=== PATIENT | female | born 1965 | race Caucasian/White ===

== ENCOUNTER 2020-06-22 16:07 | Inpatient (IN) | payer OTHER ==
[~2020-06-22] VITALS: Ht 170.2 cm; Wt 230.4 kg
[~2020-06-22 16:07] MED LIST: CEPH250C PO; FERR325T14 PO; FURO40TA4 PO; LEVO112T49 PO; LOSA-73 PO; Smz/Tmp 800/160MG PO
[2020-06-22] MEDS ORDERED: VANCOMYCIN PER PHARMACY MC ONE (16:45)
[2020-06-22] MEDS ORDERED: MORPHINE SULFATE 4 MG/ML VIAL. IV/SQ PRN (16:45)
[2020-06-22 16:50] LABS: BASO % 0 % (0-3); EOS # 0.2 x10^3/uL (0.0-0.7); EOS % 3 % (0-3); HEMATOCRIT 43.8 % (36.0-47.0); HEMOGLOBIN 14.3 g/dL (12.0-15.5); LYMPH # 1.3 x10^3/uL (1.0-4.8); LYMPH % 17 % (24-48); MEAN CORPUSCULAR HEMOGLOBIN 28 pg (25-35); MEAN CORPUSCULAR HGB CONC 33 g/dL (31-37); MEAN CORPUSCULAR VOLUME 87 fL (79-100); MONO # 0.4 x10^3/uL (0.0-1.1); MONO % 6 % (0-9); NEUT # 5.4 x10^3/uL (1.8-7.7); NEUT % 74 % (31-73); PLATELET COUNT 266 x10^3/uL (140-400); RED BLOOD COUNT 5.06 x10^6/uL (3.50-5.40); RED CELL DISTRIBUTION WIDTH 15.7 % (11.5-14.5); WHITE BLOOD COUNT 7.3 x10^3/uL (4.0-11.0)
[2020-06-22] MEDS ORDERED: VANCOMYCIN 2 GM in IV NORMAL SALINE 500ML BAG 500 ML IV ONE (17:00)
[2020-06-22 17:04] LABS: CALCIUM 8.7 mg/dL (8.5-10.1); CREATININE 0.9 mg/dL (0.6-1.0); POTASSIUM 3.5 mmol/L (3.5-5.1)
[2020-06-22 17:08] LABS: ALBUMIN 3.2 g/dL (3.4-5.0); ALBUMIN/GLOBULIN RATIO 0.7 (1.0-1.7); TOTAL BILIRUBIN 0.4 mg/dL (0.2-1.0); TOTAL PROTEIN 7.9 g/dL (6.4-8.2)
[2020-06-22] MEDS ORDERED: PIPERACILLIN/TAZOBACTAM 4.5 GM in IV NORMAL SALINE 100ML 100 ML IV ONE (17:15)
--- NOTE | 2020-06-22 17:36 | PDOC1 ---
History and Physical Date of Admission Date of Admission DATE: 06/22/20 TIME: 17:35 Identification/Chief Complaint Chief Complaint SEEN IN ER WITH BILATERAL LOWER LEG CELLULITIS, LYMPHEDEMA , is followed by home visits by Dr STANLEY 54 year old female with a history of hypertension, kidney disease, morbidly obese, who presents the ED today complaining of bilateral lower extremity cellulitis that began a week ago and has gotten worse over the last couple days. Patient states she has history of circulation issues/ LYMPHEDEMA to bilateral lower extremities that occasionally causes her cellulitis. Patient denies any fever. Denies any shortness of breath. Past Medical History Cardiovascular: No pertinent hx, Hyperlipidemia Pulmonary: No pertinent hx GI: No pertinent hx Heme/Onc: No pertinent hx Hepatobiliary: No pertinent hx Psych: No pertinent hx Musculoskeletal: Osteoarthritis Rheumatologic: No pertinent hx Infectious disease: No pertinent hx Renal/: No pertinent hx Endocrine: No pertinent hx Past Surgical History Past Surgical History: No pertinent history Family History Family History Past Medical History Cardiovascular: No pertinent hx Pulmonary: No pertinent hx GI: No pertinent hx Heme/Onc: No pertinent hx Hepatobiliary: No pertinent hx Psych: No pertinent hx Rheumatologic: No pertinent hx Infectious disease: No pertinent hx ENT: No pertinent hx Renal/: No pertinent hx Endocrine: No pertinent hx Dermatology: No pertinent hx Past Surgical History Past Surgical History: No pertinent history Family History Family History: High Cholestrol, Hypertension Social History Smoke: No ALCOHOL: none Drugs: None Family History: High Cholestrol, Hypertension Social History Smoke: No ALCOHOL: none Drugs: None Current Medications Current Medications Current Medications Sodium Chloride 1,000 ml @ 1,860 mls/hr Q33M IV ; Start 06/22/20 at 16:38; Stop 06/22/20 at 17:38 Piperacillin Sod/ Tazobactam Sod 4.5 gm/Sodium Chloride 100 ml @ 200 mls/hr 1X ONCE IV ; Start 06/22/20 at 17:15; Stop 06/22/20 at 17:44 Vancomycin HCl (Vanco Per Pharmacy) 1 each 1X ONCE MC ; Start 06/22/20 at 16:45; Stop 06/22/20 at 16:46; Status UNV Morphine Sulfate (Morphine Sulfate) 4 mg PRN Q15MIN PRN IV/SQ PAIN GREATER THAN 3/10; Start 06/22/20 at 16:45; Stop 06/23/20 at 16:44 Vancomycin HCl 2 gm/Sodium Chloride 500 ml @ 250 mls/hr 1X ONCE IV ; Start 06/22/20 at 17:00; Stop 06/22/20 at 18:59 Active Scripts Active [Smz/Tmp 800/160MG] 1 TAB Tablet 1 Tab PO BID 10 Days Cephalexin 250 Mg Capsule 500 Mg PO TID 10 Days Reported Furosemide 40 Mg Tablet 1 Tab PO DAILY Ferrous Sulfate 325 Mg Tablet 1 Tab PO DAILY Losartan Potassium 50 Mg Tablet 50 Mg PO DAILY Levothyroxine Sodium 112 Mcg Tablet 1 Tab PO DAILY Allergies Allergies: Coded Allergies: metformin (Verified Allergy, Severe, 01/02/20) ROS Review of System Constitutional: Denies fever or chills. [] Eyes: Denies change in visual acuity. [] HENT: Denies nasal congestion or sore throat. [] Respiratory: Denies cough or shortness of breath. [] Cardiovascular: Denies chest pain or edema. [] GI: Denies abdominal pain, nausea, vomiting, bloody stools or diarrhea. [] : Denies dysuria. [] Musculoskeletal: Denies back pain or joint pain. [] Integument: Reports cellulitis to bilateral lower extremities Neurologic: Denies headache, focal weakness or sensory changes. [] Psychiatric: Denies depression or anxiety. [] 14 PT ROS OTHERWISE NEG General: YES: Fatigue Hematological and Lymphatic: No: Bleeding Problems, Blood Clots, Blood Transfusions, Brusing, Night Sweats, Pallor, Swollen Lymph Nodes, Other Respiratory: No: Cough, Hemoptysis, Orthopnea, Pleuritic Pain, Shortness of breath, SOB with excertion, Sputum Changes, Stridor, Tachypnea, Wheezing, Other Cardiovascular: No Chest Pain, No Palpitations, No Orthopnea, No Paroxysmal Noc. Dyspnea, No Edema, No Lt Headedness, No Other Gastrointestinal: No Nausea, No Vomiting, No Abdominal Pain, No Diarrhea, No Constipation, No Melena, No Hematochezia, No Other Musculoskeletal: Yes Gait Disturbance, Yes Joint Stiffness, Yes Muscular Weakness Neurological: Yes Gait Disturbance Skin: Yes Dry Skin, Yes Skin Lesion Changes Physical Exam Physical Exam Constitutional: Well developed, well nourished, no acute distress, non-toxic appearance. [] HENT: Normocephalic, atraumatic, bilateral external ears normal, oropharynx m oist, no oral exudates, nose normal. [] Eyes: PERRLA, EOMI, conjunctiva normal, no discharge. [] Neck: Normal range of motion, no tenderness, supple, no stridor. [] Cardiovascular:Heart rate regular rhythm, no murmur [] Lungs & Thorax: Bilateral breath sounds clear to auscultation [] Abdomen: Bowel sounds normal, soft, no tenderness, no masses, no pulsatile masses. [] Skin: Warm, dry, no erythema, no rash. [] Back: No tenderness, no CVA tenderness. [] Extremities: Morbidly obese patient. Bilateral lower extremities with moderate cellulitis, multiple open up wounds on bilateral wilson with clear liquid weeping. MILD tenderness, no cyanosis, no clubbing, ROM intact Neurologic: Alert and oriented X 3, normal motor function, normal sensory function, no focal deficits noted. [] Psychologic: Affect normal, judgment normal, mood normal. [] General: Alert, Oriented X3, Cooperative, No acute distress HEENT: Atraumatic, PERRLA, EOMI, Mucous membr. moist/pink Lungs: Clear to auscultation Heart: RRR Breasts: Not examined Abdomen: Normal bowel sounds, Soft Rectal Exam: not examined Extremities: No cyanosis Neuro: Normal speech, Strength at 5/5 X4 ext, Sensation intact, Cranial nerves 3-12 NL Psych/Mental Status: Mental status NL, Mood NL Vitals Vitals Vital Signs Date Time Temp Pulse Resp B/P (MAP) Pulse Ox O2 Delivery O2 Flow Rate FiO2 06/22/20 16:09 98.3 89 16 134/94 (107) 99 Room Air 98.3 Labs Labs Laboratory Tests Test 06/22/20 16:20 White Blood Count 7.3 x10^3/uL (4.0-11.0) Red Blood Count 5.06 x10^6/uL (3.50-5.40) Hemoglobin 14.3 g/dL (12.0-15.5) Hematocrit 43.8 % (36.0-47.0) Mean Corpuscular Volume 87 fL (79-100) Mean Corpuscular Hemoglobin 28 pg (25-35) Mean Corpuscular Hemoglobin Concent 33 g/dL (31-37) Red Cell Distribution Width 15.7 % (11.5-14.5) Platelet Count 266 x10^3/uL (140-400) Neutrophils (%) (Auto) 74 % (31-73) Lymphocytes (%) (Auto) 17 % (24-48) Monocytes (%) (Auto) 6 % (0-9) Eosinophils (%) (Auto) 3 % (0-3) Basophils (%) (Auto) 0 % (0-3) Neutrophils # (Auto) 5.4 x10^3/uL (1.8-7.7) Lymphocytes # (Auto) 1.3 x10^3/uL (1.0-4.8) Monocytes # (Auto) 0.4 x10^3/uL (0.0-1.1) Eosinophils # (Auto) 0.2 x10^3/uL (0.0-0.7) Basophils # (Auto) 0.0 x10^3/uL (0.0-0.2) Prothrombin Time 13.0 SEC (11.7-14.0) Prothromb Time International Ratio 1.0 (0.8-1.1) Activated Partial Thromboplast Time 38 SEC (24-38) Sodium Level 139 mmol/L (136-145) Potassium Level 3.5 mmol/L (3.5-5.1) Chloride Level 103 mmol/L (98-107) Carbon Dioxide Level 29 mmol/L (21-32) Anion Gap 7 (6-14) Blood Urea Nitrogen 19 mg/dL (7-20) Creatinine 0.9 mg/dL (0.6-1.0) Estimated GFR (Cockcroft-Gault) 65.0 BUN/Creatinine Ratio 21 (6-20) Glucose Level 122 mg/dL (70-99) Lactic Acid Level 2.0 mmol/L (0.4-2.0) Calcium Level 8.7 mg/dL (8.5-10.1) Total Bilirubin 0.4 mg/dL (0.2-1.0) Aspartate Amino Transf (AST/SGOT) 14 U/L (15-37) Alanine Aminotransferase (ALT/SGPT) 21 U/L (14-59) Alkaline Phosphatase 79 U/L (46-116) Total Protein 7.9 g/dL (6.4-8.2) Albumin 3.2 g/dL (3.4-5.0) Albumin/Globulin Ratio 0.7 (1.0-1.7) Procalcitonin < 0.10 ng/mL (0.00-0.10) Laboratory Tests Test 06/22/20 16:20 White Blood Count 7.3 x10^3/uL (4.0-11.0) Red Blood Count 5.06 x10^6/uL (3.50-5.40) Hemoglobin 14.3 g/dL (12.0-15.5) Hematocrit 43.8 % (36.0-47.0) Mean Corpuscular Volume 87 fL (79-100) Mean Corpuscular Hemoglobin 28 pg (25-35) Mean Corpuscular Hemoglobin Concent 33 g/dL (31-37) Red Cell Distribution Width 15.7 % (11.5-14.5) Platelet Count 266 x10^3/uL (140-400) Neutrophils (%) (Auto) 74 % (31-73) Lymphocytes (%) (Auto) 17 % (24-48) Monocytes (%) (Auto) 6 % (0-9) Eosinophils (%) (Auto) 3 % (0-3) Basophils (%) (Auto) 0 % (0-3) Neutrophils # (Auto) 5.4 x10^3/uL (1.8-7.7) Lymphocytes # (Auto) 1.3 x10^3/uL (1.0-4.8) Monocytes # (Auto) 0.4 x10^3/uL (0.0-1.1) Eosinophils # (Auto) 0.2 x10^3/uL (0.0-0.7) Basophils # (Auto) 0.0 x10^3/uL (0.0-0.2) Prothrombin Time 13.0 SEC (11.7-14.0) Prothromb Time International Ratio 1.0 (0.8-1.1) Activated Partial Thromboplast Time 38 SEC (24-38) Sodium Level 139 mmol/L (136-145) Potassium Level 3.5 mmol/L (3.5-5.1) Chloride Level 103 mmol/L (98-107) Carbon Dioxide Level 29 mmol/L (21-32) Anion Gap 7 (6-14) Blood Urea Nitrogen 19 mg/dL (7-20) Creatinine 0.9 mg/dL (0.6-1.0) Estimated GFR (Cockcroft-Gault) 65.0 BUN/Creatinine Ratio 21 (6-20) Glucose Level 122 mg/dL (70-99) Lactic Acid Level 2.0 mmol/L (0.4-2.0) Calcium Level 8.7 mg/dL (8.5-10.1) Total Bilirubin 0.4 mg/dL (0.2-1.0) Aspartate Amino Transf (AST/SGOT) 14 U/L (15-37) Alanine Aminotransferase (ALT/SGPT) 21 U/L (14-59) Alkaline Phosphatase 79 U/L (46-116) Total Protein 7.9 g/dL (6.4-8.2) Albumin 3.2 g/dL (3.4-5.0) Albumin/Globulin Ratio 0.7 (1.0-1.7) Procalcitonin < 0.10 ng/mL (0.00-0.10) VTE Prophylaxis Ordered VTE Prophylaxis Devices: Contraindicated VTE Pharmacological Prophylaxi: Yes Assessment/Plan Assessment/Plan IMPRESSION Bilateral lower leg cellulitis Super Morbidly obese - counseled on weight Prediabetes - will follow glucose levels. Elo intertrigo - applied miconazole cream hypertension plan IV ANTIBIOTICS VENOUS DOPPLER BOTH LEGS R/O DVT OT FOR LYMPHEDEMA ID CONSULT IV ZOSYN ACCUCHECKS SS INSULIN D/W ER DR Nessfation of Admission Dx: Justifications for Admission: Justification of Admission Dx: Yes Cellulitis: Cellulitis Angina: Cresendo Worsening of Sym ABDIFATAH MCKEE MD Jun 22, 2020 17:36
[2020-06-22] MEDS: IV NORMAL SALINE 1000ML BAG 1,000 ML IV SCH ×3 (17:45→21:21)
--- NOTE | 2020-06-22 18:10 | PHYS DOC ---
Past Medical History Past Medical History: High Cholesterol, Hypertension, Hypothyroid, Renal Disease, Other Additional Past Medical Histor: BORDERLINE DM, 'VENOUS PROBLEM', MORBID OBESITY Past Surgical History: Cholecystectomy, Tonsillectomy, Tubal ligation Additional Past Surgical Histo: BLADDER SLING Smoking Status: Former Smoker Alcohol Use: Rarely General Adult EDM: Chief Complaint: LOWER EXTREMITY SWELLING HPI: HPI: Patient is a 54 year old female with a history of hypertension, kidney disease, morbidly obese, who presents the ED today complaining of bilateral lower extremity cellulitis that began a week ago and has gotten worse over the last couple days. Patient states she has history of circulation issues to bilateral lower extremities that occasionally causes her cellulitis. Patient denies any fever. Denies any shortness of breath. Review of Systems: Review of Systems: Constitutional: Denies fever or chills. [] Eyes: Denies change in visual acuity. [] HENT: Denies nasal congestion or sore throat. [] Respiratory: Denies cough or shortness of breath. [] Cardiovascular: Denies chest pain or edema. [] GI: Denies abdominal pain, nausea, vomiting, bloody stools or diarrhea. [] : Denies dysuria. [] Musculoskeletal: Denies back pain or joint pain. [] Integument: Reports cellulitis to bilateral lower extremities Neurologic: Denies headache, focal weakness or sensory changes. [] Psychiatric: Denies depression or anxiety. [] Heart Score: Risk Factors: Risk Factors: DM, Current or recent (<one month) smoker, HTN, HLP, family histo ry of CAD, obesity. Risk Scores: Score 0 - 3: 2.5% MACE over next 6 weeks - Discharge Home Score 4 - 6: 20.3% MACE over next 6 weeks - Admit for Clinical Observation Score 7 - 10: 72.7% MACE over next 6 weeks - Early Invasive Strategies Current Medications: Current Medications Medications (Trade) Dose Ordered Sig/Renato Start Time Stop Time Status Last Admin Dose Admin Morphine Sulfate (Morphine Sulfate) 4 mg PRN Q15MIN PRN 06/22/20 16:45 06/23/20 16:44 06/22/20 17:45 4 MG Piperacillin Sod/ Tazobactam Sod 4.5 gm/Sodium Chloride 100 ml @ 200 mls/hr 1X ONCE 06/22/20 17:15 06/22/20 17:44 DC 8/6/20 17:46 200 MLS/HR Sodium Chloride 1,000 ml @ 1,860 mls/hr Q33M 06/22/20 16:38 06/22/20 17:38 DC 06/22/20 17:45 1,860 MLS/HR Vancomycin HCl (Vanco Per Pharmacy) 1 each 1X ONCE 06/22/20 16:45 06/22/20 16:46 UNV Vancomycin HCl 2 gm/Sodium Chloride 500 ml @ 250 mls/hr 1X ONCE 06/22/20 17:00 06/22/20 18:59 Allergies: Allergies: Allergies Coded Allergies Type Severity Reaction Last Updated Verified metformin Allergy Severe 01/02/20 Yes Physical Exam: PE: Constitutional: Well developed, well nourished, no acute distress, non-toxic appearance. [] HENT: Normocephalic, atraumatic, bilateral external ears normal, oropharynx moist, no oral exudates, nose normal. [] Eyes: PERRLA, EOMI, conjunctiva normal, no discharge. [] Neck: Normal range of motion, no tenderness, supple, no stridor. [] Cardiovascular:Heart rate regular rhythm, no murmur [] Lungs & Thorax: Bilateral breath sounds clear to auscultation [] Abdomen: Bowel sounds normal, soft, no tenderness, no masses, no pulsatile masses. [] Skin: Warm, dry, no erythema, no rash. [] Back: No tenderness, no CVA tenderness. [] Extremities: Morbidly obese patient. Bilateral lower extremities with moderate cellulitis, multiple open up wounds on bilateral wilson with clear liquid weeping. No tenderness, no cyanosis, no clubbing, ROM intact Neurologic: Alert and oriented X 3, normal motor function, normal sensory function, no focal deficits noted. [] Psychologic: Affect normal, judgement normal, mood normal. [] Current Patient Data: Labs: Laboratory Tests Test 06/22/20 16:20 White Blood Count 7.3 x10^3/uL (4.0-11.0) Red Blood Count 5.06 x10^6/uL (3.50-5.40) Hemoglobin 14.3 g/dL (12.0-15.5) Hematocrit 43.8 % (36.0-47.0) Mean Corpuscular Volume 87 fL (79-100) Mean Corpuscular Hemoglobin 28 pg (25-35) Mean Corpuscular Hemoglobin Concent 33 g/dL (31-37) Red Cell Distribution Width 15.7 % (11.5-14.5) H Platelet Count 266 x10^3/uL (140-400) Neutrophils (%) (Auto) 74 % (31-73) H Lymphocytes (%) (Auto) 17 % (24-48) L Monocytes (%) (Auto) 6 % (0-9) Eosinophils (%) (Auto) 3 % (0-3) Basophils (%) (Auto) 0 % (0-3) Neutrophils # (Auto) 5.4 x10^3/uL (1.8-7.7) Lymphocytes # (Auto) 1.3 x10^3/uL (1.0-4.8) Monocytes # (Auto) 0.4 x10^3/uL (0.0-1.1) Eosinophils # (Auto) 0.2 x10^3/uL (0.0-0.7) Basophils # (Auto) 0.0 x10^3/uL (0.0-0.2) Prothrombin Time 13.0 SEC (11.7-14.0) Prothrombin Time INR 1.0 (0.8-1.1) Activated Partial Thromboplast Time 38 SEC (24-38) Sodium Level 139 mmol/L (136-145) Potassium Level 3.5 mmol/L (3.5-5.1) Chloride Level 103 mmol/L (98-107) Carbon Dioxide Level 29 mmol/L (21-32) Anion Gap 7 (6-14) Blood Urea Nitrogen 19 mg/dL (7-20) Creatinine 0.9 mg/dL (0.6-1.0) Estimated GFR (Cockcroft-Gault) 65.0 BUN/Creatinine Ratio 21 (6-20) H Glucose Level 122 mg/dL (70-99) H Lactic Acid Level 2.0 mmol/L (0.4-2.0) Calcium Level 8.7 mg/dL (8.5-10.1) Total Bilirubin 0.4 mg/dL (0.2-1.0) Aspartate Amino Transferase (AST) 14 U/L (15-37) L Alanine Aminotransferase (ALT) 21 U/L (14-59) Alkaline Phosphatase 79 U/L (46-116) Total Protein 7.9 g/dL (6.4-8.2) Albumin 3.2 g/dL (3.4-5.0) L Albumin/Globulin Ratio 0.7 (1.0-1.7) L Procalcitonin < 0.10 ng/mL (0.00-0.10) Laboratory Tests 06/22/20 16:20 Laboratory Tests 06/22/20 16:20 Vital Signs: Vital Signs Date Time Temp Pulse Resp B/P (MAP) Pulse Ox O2 Delivery O2 Flow Rate FiO2 06/22/20 17:45 99 Room Air 06/22/20 16:09 98.3 89 16 134/94 (107) 98.3 EKG: EKG: [] Radiology/Procedures: Radiology/Procedures: [] Course & Med Decision Making: Course & Med Decision Making Pertinent Labs and Imaging studies reviewed. (See chart for details) This is a 54-year-old female patient presenting to the ED today with cellulitis to bilateral lower extremities. Patient is morbidly obese. CBC, CMP, lactic are negative for any acute findings. Started on IV antibiotics. Wound care consult placed. Contacted Dr. Smith who accepted patient for admission. Nasir Disclaimer: Nasir Disclaimer: This electronic medical record was generated, in whole or in part, using a voice recognition dictation system. Departure Departure Impression: Primary Impression: Cellulitis of lower extremity Qualified Codes: L03.115 - Cellulitis of right lower limb Disposition: ADMITTED INPATIENT Condition: STABLE Referrals: UNKNOWN PCP NAME (PCP) Justicifation of Admission Dx: Justifications for Admission: Justification of Admission Dx: N/A Cellulitis: Cellulitis FELIPE WOODS RODDING MACHINE TENDER Jun 22, 2020 18:10
[2020-06-22] MEDS ORDERED: SODIUM PHOSPHATES 19/7GM 133 ML ENEMA. PR PRN (18:30)
[2020-06-22] MEDS ORDERED: ACETAMINOPHEN 325 MG TABLET. PO PRN (18:30)
[2020-06-22] MEDS ORDERED: cloNIDine HCL 0.1 MG TABLET PO PRN (18:30)
[2020-06-22] MEDS ORDERED: ALBUTEROL SULFATE 2.5 MG/3 ML NEBU. NEB PRN (18:30)
[2020-06-22] MEDS ORDERED: ONDANSETRON PF 4 MG/2 ML VIAL. IV PRN ×2 (18:30)
[2020-06-22] MEDS ORDERED: 0.9 % SODIUM CHLORIDE 10 ML DISP.SYRIN. IV PRN (18:30)
[2020-06-22] MEDS ORDERED: guaiFENesin ORAL 200 MG/10 ML LIQUID. PO PRN (18:30)
[2020-06-22] MEDS ORDERED: DOCUSATE SODIUM 100 MG CAPSULE. PO PRN (18:30)
--- NOTE | 2020-06-22 18:37 | RAD ---
Bilateral lower extremity venous Doppler dated 06/22/2020. No comparison available. Clinical data indication: Leg pain and swelling. Cellulitis. FINDINGS: Grayscale, color-flow and spectral waveform analysis performed to include the deep venous system of both lower extremity. There is normal compressibility, phasicity and augmentation of flow throughout the right lower extremity arterial tree. No filling defects are seen. On the left, there is partially occlusive filling defect within the left superficial femoral vein at its mid aspect. Deep veins in the left are otherwise patent. IMPRESSION: 1. Nonocclusive short segment thrombosis of the mid superficial femoral vein on the left. 2. No evidence of DVT on the right. Electronically signed by: Skyler Go MD (06/22/2020 6:34 PM) [place]
--- NOTE | 2020-06-22 18:40 | RAD ---
Exam: Ultrasound bilateral lower extremity arterial Indication: Bilateral lower extremity edema, cellulitis Technique: Real-time grayscale and color Doppler images of the bilateral lower extremities were obtained by the department heel shaper. Comparisons: None FINDINGS: Peak systolic velocities as follows: Right: PROFILE GRINDER: 69 DFA: 79 Proximal SFA: 76 Mid SFA: 168 Distal SFA: 55 Popliteal: 85 LOAN FUNDER proximal: 69 LOAN FUNDER distal 87 Peroneal: Not visualized AMARIS: 69 DPA: 107 Left: PROFILE GRINDER: 171 DFA: Nonvisualized Proximal SFA: 186 Mid SFA: 144 Distal SFA: 150 Popliteal: 118 LOAN FUNDER proximal: 111 Distal LOAN FUNDER: 105 Peroneal: Nonvisualized AMARIS: 84 DPA: 105 Monophasic waveforms are noted throughout the bilateral lower extremities. IMPRESSION: Monophasic waveforms throughout the bilateral lower extremities suggestive of upstream stenosis Electronically signed by: Cleo Hurst MD (06/22/2020 6:37 PM) [id number]
[2020-06-22 22:00] VITALS: BP 171/75
[2020-06-22] MEDS: MORPHINE SULFATE 2 MG/ML VIAL. IV PRN (22:14)
[2020-06-22] MEDS ORDERED: NAPR220T70 PO (23:39)
[2020-06-22] MEDS ORDERED: SENN1TAB62 PO (23:39)
[2020-06-22] MEDS ORDERED: NYST15PO9 TP (23:39)
[2020-06-22] MEDS ORDERED: ALBU2.5V8 IH (23:39)
[2020-06-22] MEDS ORDERED: POTA20TA4 PO (23:39)
[2020-06-22] MEDS: PIPERACILLIN/TAZOBACTAM 3.375 GM in IV NORMAL SALINE 50ML 50 ML IV SCH (23:56)
[2020-06-23] MEDS ORDERED: ZOLPIDEM 5 MG TABLET. PO PRN (00:15)
[2020-06-23] MEDS: MORPHINE SULFATE 2 MG/ML VIAL. IV PRN ×5 (00:19→15:28)
[2020-06-23 03:12] VITALS: BP 133/72
[2020-06-23] MEDS: IV NORMAL SALINE 1000ML BAG 1,000 ML IV SCH (04:24)
[2020-06-23] MEDS: PIPERACILLIN/TAZOBACTAM 3.375 GM in IV NORMAL SALINE 50ML 50 ML IV SCH ×2 (05:46→11:26)
[2020-06-23 07:00] VITALS: BP 131/69
[2020-06-23] MEDS ORDERED: LOSARTAN POTASSIUM 50 MG TABLET. PO SCH (09:00)
[2020-06-23] MEDS ORDERED: FERROUS SULFATE 325 MG TABLET. PO SCH (09:00)
[2020-06-23] MEDS ORDERED: FUROSEMIDE 40 MG TABLET. PO SCH (09:00)
[2020-06-23] MEDS ORDERED: LEVOTHYROXINE 112 MCG TABLET PO SCH (09:00)
--- NOTE | 2020-06-23 10:20 | PDOC ---
Infectious Disease Note Vital Sign Vital Signs Vital Signs Date Time Temp Pulse Resp B/P (MAP) Pulse Ox O2 Delivery O2 Flow Rate FiO2 06/23/20 09:05 16 Room Air 06/23/20 09:04 79 131/69 06/23/20 07:00 97.8 98 97.8 06/23/20 06:18 4.0 Labs Lab Laboratory Tests Test 06/22/20 16:20 White Blood Count 7.3 x10^3/uL (4.0-11.0) Red Blood Count 5.06 x10^6/uL (3.50-5.40) Hemoglobin 14.3 g/dL (12.0-15.5) Hematocrit 43.8 % (36.0-47.0) Mean Corpuscular Volume 87 fL (79-100) Mean Corpuscular Hemoglobin 28 pg (25-35) Mean Corpuscular Hemoglobin Concent 33 g/dL (31-37) Red Cell Distribution Width 15.7 % (11.5-14.5) Platelet Count 266 x10^3/uL (140-400) Neutrophils (%) (Auto) 74 % (31-73) Lymphocytes (%) (Auto) 17 % (24-48) Monocytes (%) (Auto) 6 % (0-9) Eosinophils (%) (Auto) 3 % (0-3) Basophils (%) (Auto) 0 % (0-3) Neutrophils # (Auto) 5.4 x10^3/uL (1.8-7.7) Lymphocytes # (Auto) 1.3 x10^3/uL (1.0-4.8) Monocytes # (Auto) 0.4 x10^3/uL (0.0-1.1) Eosinophils # (Auto) 0.2 x10^3/uL (0.0-0.7) Basophils # (Auto) 0.0 x10^3/uL (0.0-0.2) Prothrombin Time 13.0 SEC (11.7-14.0) Prothromb Time International Ratio 1.0 (0.8-1.1) Activated Partial Thromboplast Time 38 SEC (24-38) Sodium Level 139 mmol/L (136-145) Potassium Level 3.5 mmol/L (3.5-5.1) Chloride Level 103 mmol/L (98-107) Carbon Dioxide Level 29 mmol/L (21-32) Anion Gap 7 (6-14) Blood Urea Nitrogen 19 mg/dL (7-20) Creatinine 0.9 mg/dL (0.6-1.0) Estimated GFR (Cockcroft-Gault) 65.0 BUN/Creatinine Ratio 21 (6-20) Glucose Level 122 mg/dL (70-99) Lactic Acid Level 2.0 mmol/L (0.4-2.0) Calcium Level 8.7 mg/dL (8.5-10.1) Total Bilirubin 0.4 mg/dL (0.2-1.0) Aspartate Amino Transf (AST/SGOT) 14 U/L (15-37) Alanine Aminotransferase (ALT/SGPT) 21 U/L (14-59) Alkaline Phosphatase 79 U/L (46-116) Total Protein 7.9 g/dL (6.4-8.2) Albumin 3.2 g/dL (3.4-5.0) Albumin/Globulin Ratio 0.7 (1.0-1.7) Procalcitonin < 0.10 ng/mL (0.00-0.10) Objective Assessment pt seen, consult dictated Plan Plan of Care / LUDMILA RENEE MD Jun 23, 2020 10:20
--- NOTE | 2020-06-23 10:29 | NUR ---
SS following for discharge planning. SS reviewed pt chart and discussed with pt RN. Pt is from home with spouse and is currently on PRN oxygen at HS. Pt on IV Zosyn. Discharge plan is to home when ready. SS will continue to follow for discharge planning.
[2020-06-23 11:00] VITALS: BP 119/62
[2020-06-23] MEDS ORDERED: MULTIVITAMIN with MINERAL TABLET. PO SCH (11:00)
--- NOTE | 2020-06-23 11:36 | PDOC ---
[employer] PROGRESS NOTE Date of Service DOS: DATE: 06/23/20 TIME: 11:28 Chief Complaint Chief Complaint Bilateral lower leg cellulitis Morbidly obese Prediabetes Elo intertrigo Hypertension History of Present Illness History of Present Illness 06/23/2020 Patient seen and examined Stevie LIV[place] Oxygen supplementation at baseline Probable discharge today Discussed with RN Discussed with ID and Social work Chart reviewed Vitals/I&O Vitals/I&O: Vital Signs Date Time Temp Pulse Resp B/P (MAP) Pulse Ox O2 Delivery O2 Flow Rate FiO2 06/23/20 11:26 16 Room Air 06/23/20 09:04 79 131/69 06/23/20 07:00 97.8 98 97.8 06/23/20 06:18 4.0 I & O 06/22/20 06/22/20 06/23/20 15:00 23:00 07:00 Intake Total 0 ml 150 ml Output Total 200 ml Balance 0 ml -50 ml Physical Exam General: Alert, Oriented X3, Cooperative, No acute distress Heart: Regular rate Lungs: Clear Abdomen: Normal bowel sounds, Soft Extremities: No clubbing, No cyanosis Labs Labs: Laboratory Tests Test 06/22/20 16:20 White Blood Count 7.3 x10^3/uL (4.0-11.0) Red Blood Count 5.06 x10^6/uL (3.50-5.40) Hemoglobin 14.3 g/dL (12.0-15.5) Hematocrit 43.8 % (36.0-47.0) Mean Corpuscular Volume 87 fL (79-100) Mean Corpuscular Hemoglobin 28 pg (25-35) Mean Corpuscular Hemoglobin Concent 33 g/dL (31-37) Red Cell Distribution Width 15.7 % (11.5-14.5) Platelet Count 266 x10^3/uL (140-400) Neutrophils (%) (Auto) 74 % (31-73) Lymphocytes (%) (Auto) 17 % (24-48) Monocytes (%) (Auto) 6 % (0-9) Eosinophils (%) (Auto) 3 % (0-3) Basophils (%) (Auto) 0 % (0-3) Neutrophils # (Auto) 5.4 x10^3/uL (1.8-7.7) Lymphocytes # (Auto) 1.3 x10^3/uL (1.0-4.8) Monocytes # (Auto) 0.4 x10^3/uL (0.0-1.1) Eosinophils # (Auto) 0.2 x10^3/uL (0.0-0.7) Basophils # (Auto) 0.0 x10^3/uL (0.0-0.2) Prothrombin Time 13.0 SEC (11.7-14.0) Prothromb Time International Ratio 1.0 (0.8-1.1) Activated Partial Thromboplast Time 38 SEC (24-38) Sodium Level 139 mmol/L (136-145) Potassium Level 3.5 mmol/L (3.5-5.1) Chloride Level 103 mmol/L (98-107) Carbon Dioxide Level 29 mmol/L (21-32) Anion Gap 7 (6-14) Blood Urea Nitrogen 19 mg/dL (7-20) Creatinine 0.9 mg/dL (0.6-1.0) Estimated GFR (Cockcroft-Gault) 65.0 BUN/Creatinine Ratio 21 (6-20) Glucose Level 122 mg/dL (70-99) Lactic Acid Level 2.0 mmol/L (0.4-2.0) Calcium Level 8.7 mg/dL (8.5-10.1) Total Bilirubin 0.4 mg/dL (0.2-1.0) Aspartate Amino Transf (AST/SGOT) 14 U/L (15-37) Alanine Aminotransferase (ALT/SGPT) 21 U/L (14-59) Alkaline Phosphatase 79 U/L (46-116) Total Protein 7.9 g/dL (6.4-8.2) Albumin 3.2 g/dL (3.4-5.0) Albumin/Globulin Ratio 0.7 (1.0-1.7) Procalcitonin < 0.10 ng/mL (0.00-0.10) Assessment and Plan Assessmemt and Plan Problems Medical Problems: (1) Cellulitis of lower extremity Status: Acute ASSESSMENT Bilateral lower leg cellulitis Morbidly obese Prediabetes Elo intertrigo Hypertension PLAN Probable discharge today Change to Augmentin PO Oxygen supplementation Home meds Wound care DVT prophylaxis Full code Appreciate subspecialty input Comment Review of Relevant I have reviewed the following items nazario (where applicable) has been applied. Medications: Current Medications Medications (Trade) Dose Ordered Sig/Renato Route PRN Reason Start Time Stop Time Status Last Admin Dose Admin Sodium Chloride 1,000 ml @ 1,860 mls/hr Q33M IV 06/22/20 16:38 06/22/20 17:38 DC 06/22/20 21:21 Piperacillin Sod/ Tazobactam Sod 4.5 gm/Sodium Chloride 100 ml @ 200 mls/hr 1X ONCE IV 06/22/20 17:15 06/22/20 17:44 DC 06/22/20 17:46 Morphine Sulfate (Morphine Sulfate) 4 mg PRN Q15MIN PRN IV/SQ PAIN GREATER THAN 3/10 06/22/20 16:45 06/23/20 10:58 DC 06/22/20 17:45 Vancomycin HCl 2 gm/Sodium Chloride 500 ml @ 250 mls/hr 1X ONCE IV 06/22/20 17:00 06/22/20 18:59 DC 06/22/20 18:24 Piperacillin Sod/ Tazobactam Sod 3.375 gm/Sodium Chloride 50 ml @ 100 mls/hr Q6HRS IV 06/23/20 00:00 06/23/20 11:26 Ferrous Sulfate (Feosol) 325 mg DAILY PO 06/23/20 09:00 06/23/20 09:04 Furosemide (Lasix) 40 mg DAILY PO 06/23/20 09:00 06/23/20 09:05 Levothyroxine Sodium (Synthroid) 112 mcg DAILY PO 06/23/20 09:00 06/23/20 09:04 Losartan Potassium (Cozaar) 50 mg DAILY PO 06/23/20 09:00 06/23/20 09:04 Sodium Chloride 1,000 ml @ 100 mls/hr Q10H IV 06/22/20 18:24 06/23/20 04:24 Enoxaparin Sodium (Lovenox 60mg Syringe) 60 mg BID SQ 06/22/20 21:00 06/23/20 09:04 Morphine Sulfate (Morphine Sulfate) 2 mg PRN Q2HR PRN IV PAIN 06/22/20 18:30 06/23/20 18:29 06/23/20 11:26 Zolpidem Tartrate (Ambien) 5 mg 1X PRN PO INSOMNIA 06/23/20 00:15 06/23/20 01:00 DC 06/23/20 00:19 Multivitamins (Thera M Plus) 1 tab DAILY PO 06/23/20 11:00 06/23/20 11:26 Justicifation of Admission Dx: Justifications for Admission: Justification of Admission Dx: Yes Cellulitis: Cellulitis Angina: Cresendo Worsening of Sym PRABHU ROMAN III DO Jun 23, 2020 11:36
--- NOTE | 2020-06-23 11:40 | SNU/HH DC ---
DISCHARGE WITH HOME HEALTH DISCHARGE INFORMATION: Final Diagnosis: Problems Medical Problems: (1) Cellulitis of lower extremity Status: Acute Condition on Discharge: Stable CODE STATUS: Code Status: Full HOME HEALTH: Face to Face: I certify this patient is under my care and that I, or a nurse practitioner or physician's claims assistant working with me, had a face to face encounter that meets the physician face to face encounter requirements with this patient on []. Medical Complications: Other (Bilateral lower extremity cellulitis) Mcc For: Assess & Educate Safety RN For Eval/Treatment: Yes Physical Therapy For: Evalulation/Treatment Occupational Therapy For: Evaluation/Treatment Home Health Aide For: Self-care DEPORTATION OFFICER For: Community Resources Pt Meets Homebound Status: Poor coordination w/ amb. POST DISCHARGE ORDERS: Activity Instructions for Disc: Activity as tolerated Weight Bearing Status after Di: As tolerated DIET AFTER DISCHARGE: Regular Wound/Incision Care: Change dressing, Reinforce dressing PRN CHECKS AFTER DISCHARGE: Checks after discharge: Check blood press - daily CERTIFICATION STATEMENT: Certification Statement: Certification Statement: Based on the above finding, I certify that this patient is confined to the home and needs intermittent longterm care, physical therapy and/or speech therapy, or continues to need occupational therapy.~ This patient is under my care, and I have initiated the establishment of the plan of care.~ This patient will be followed by myself or a community physician who will periodically review the plan of care. Home Meds Reported Medications Nystatin (NYSTATIN) 15 Gm Powder, 1 PATTI TP BID PRN for REDNESS for 7 Days, #1 BOTTLE 0 Refills apply to back of knees and under breasts as needed 06/22/20 Albuterol Sulfate (Proair Hfa) 8.5 Gm Hfa.aer.ad, 2 PUFF IH PRN Q4-6HRS PRN for wheezing for 21 Days, #1 INHALER 0 Refills 06/22/20 Potassium Chloride (KLOR-CON M20) 20 Meq Tab.er.prt, 20 MEQ PO DAILY for supplement, TAB.SR 06/22/20 Sennosides/Docusate Sodium (SENNA PLUS TABLET) 1 Each Tablet, 2 TAB PO DAILY for constipation for 14 Days, #28 TAB 0 Refills 06/22/20 Naproxen Sodium (ALEVE) 220 Mg Tablet, 440 MG PO BID PRN for PAIN, TAB 06/22/20 Furosemide (FUROSEMIDE) 40 Mg Tablet, 1 TAB PO DAILY for htn, #30 TAB 5 Refills 01/03/20 Ferrous Sulfate (FERROUS SULFATE) 325 Mg Tablet, 1 TAB PO DAILY for iron, #30 TAB 3 Refills 01/03/20 Losartan Potassium (LOSARTAN POTASSIUM) 50 Mg Tablet, 50 MG PO DAILY for HYPERTENSION, TAB 01/03/20 Levothyroxine Sodium (LEVOTHYROXINE SODIUM) 112 Mcg Tablet, 1 TAB PO DAILY for thyroid, #30 TAB 5 Refills 01/03/20 PRABHU ROMAN III DO Jun 23, 2020 11:40
--- NOTE | 2020-06-23 11:41 | SNU/HH DC ---
DISCHARGE ORDERS DISCHARGE INFORMATION: FINAL DIAGNOSIS Problems Medical Problems: (1) Cellulitis of lower extremity Status: Acute CONDITION ON DISCHARGE: Stable CODE STATUS: Code Status: Full SNF: SNF STAY <30 DAYS: Yes HOSPICE: HOSPICE: No HOSPICE EVAL & TREAT: No LTAC: ADMIT TO LTAC: No POST DISCHARGE ORDERS: ACTIVITY ORDERS: Activity as tolerated WEIGHT BEARING STATUS: As tolerated DIET AFTER DISCHARGE: Regular WOUND/INCISION CARE: Change dressing, Reinforce dressing PRN CHECKS AFTER DISCHARGE: CHECKS AFTER DISCHARGE: Check blood press - daily TREATMENT/EQUIPMENT ORDERS: Physical Therapy For: Evalulation/Treatment Occupational Therapy For: Evaluation/Treatment DISCHARGE MEDICATIONS: Home Meds Reported Medications Nystatin (NYSTATIN) 15 Gm Powder, 1 PATTI TP BID PRN for REDNESS for 7 Days, #1 BOTTLE 0 Refills apply to back of knees and under breasts as needed 06/22/20 Albuterol Sulfate (Proair Hfa) 8.5 Gm Hfa.aer.ad, 2 PUFF IH PRN Q4-6HRS PRN for wheezing for 21 Days, #1 INHALER 0 Refills 06/22/20 Potassium Chloride (KLOR-CON M20) 20 Meq Tab.er.prt, 20 MEQ PO DAILY for supplement, TAB.SR 06/22/20 Sennosides/Docusate Sodium (SENNA PLUS TABLET) 1 Each Tablet, 2 TAB PO DAILY for constipation for 14 Days, #28 TAB 0 Refills 06/22/20 Naproxen Sodium (ALEVE) 220 Mg Tablet, 440 MG PO BID PRN for PAIN, TAB 06/22/20 Furosemide (FUROSEMIDE) 40 Mg Tablet, 1 TAB PO DAILY for htn, #30 TAB 5 Refills 01/03/20 Ferrous Sulfate (FERROUS SULFATE) 325 Mg Tablet, 1 TAB PO DAILY for iron, #30 TAB 3 Refills 01/03/20 Losartan Potassium (LOSARTAN POTASSIUM) 50 Mg Tablet, 50 MG PO DAILY for HYPERTENSION, TAB 01/03/20 Levothyroxine Sodium (LEVOTHYROXINE SODIUM) 112 Mcg Tablet, 1 TAB PO DAILY for thyroid, #30 TAB 5 Refills 01/03/20 PRABHU ROMAN K III DO Jun 23, 2020 11:41
--- NOTE | 2020-06-23 11:56 | DS ---
DATE OF DISCHARGE: 06/23/2020 ADMISSION DIAGNOSES: Bilateral lower extremity cellulitis, morbid obesity, prediabetes, candidal infection, hypertension. DISCHARGE DIAGNOSES: Resolving lower extremity cellulitis, chronic morbid obesity. CONSULTS: Infectious Disease. PROCEDURES: None. HOSPITAL COURSE: The patient is a pleasant middle-aged female who is overweight. Basically, she has lower extremity cellulitis and a large abdominal pannus. She was admitted, we gave her IV antibiotics and wound care. We consulted Infectious Disease. The patient seems to be at her baseline. I saw her and examined her this morning. Her lower extremities have chronic cellulitis. They have clean, dry and intact dressings. I discussed the case with the Infectious Disease. We plan to change her to p.o. Augmentin and let her go home. DISPOSITION: Home. ACTIVITY: As tolerated. DIET: Low sodium. MEDICATIONS: Please see the MRAD. TOTAL TIME: 34 minutes. PRABHU ROMAN DO DR: RADHA/mario JOB#: [id number] / [id number]
--- NOTE | 2020-06-23 12:31 | CONS ---
DATE OF CONSULTATION: 06/23/2020 REQUESTING PHYSICIAN: Dr. Smith. REASON FOR CONSULTATION: Bilateral lower extremity cellulitis. HISTORY OF PRESENT ILLNESS: This is a 54-year-old, super morbid obesity patient, who came in with bilateral lower extremity weeping, some pain and redness. The patient has no fever. The patient has no nausea, vomiting, diarrhea, chest pain, shortness of breath, abdominal pain, urinary symptoms or bowel symptoms. The patient also does not have any leukocytosis. The patient has been put on vancomycin and Zosyn and consult has been requested. PAST MEDICAL HISTORY: Positive for again super morbid obesity. The patient is close to 550 pounds. The patient has had history of deep venous thrombosis, has venous insufficiency, stasis dermatitis, has had cholecystectomy, uses oxygen at night, asthma, diabetes, hypothyroidism, history of anxiety and depression. SOCIAL HISTORY: Negative for smoking, alcohol, drug use. ALLERGIES: LISTED ALLERGIC TO METFORMIN. CURRENT MEDICATIONS: Reviewed. REVIEW OF SYSTEMS: As per HPI, all other systems reviewed are negative. PHYSICAL EXAMINATION: GENERAL: Alert, oriented female, not in any distress. VITAL SIGNS: Stable, afebrile. HEENT: NAD. NECK: Supple, no JVP, no lymphadenopathy. LUNGS: Clear. HEART: S1, S2 regular. ABDOMEN: Soft, nontender, no organomegaly. Large pannus present. EXTREMITIES: Bilateral lower extremity superficial ulcerations with weeping present, some redness bilaterally present. NEUROLOGIC: The patient is alert, awake and appropriate. No focal neurologic deficit. LABORATORY DATA: White count is normal. BUN and creatinine is normal. Liver functions are normal. IMPRESSION: 1. Bilateral lower extremity cellulitis. 2. Bilateral lower extremity venous insufficiency. 3. Bilateral lower extremity stasis dermatitis. 4. Super morbid obesity. 5. Hypothyroidism. 6. Diabetes. RECOMMENDATIONS: The patient needs to lose weight. It appears to be there are no acute changes with no other systemic symptoms. The patient can use Augmentin and the patient needs to walk or elevate the legs, practically impossible for her to do that because of her body habitus. The patient probably should go to nursing facility and they can work with her to help her. Discussion with Dr. Maco edwards. Thank you very much, Dr. Smith, for giving me opportunity to participate in this patient's care. LUDMILA RENEE MD DR: FAROOQ/mario JOB#: [id number] / [id number]
--- NOTE | 2020-06-23 14:04 | NUR ---
SS following up with discharge planning. Discharge orders received for home healthcare. SS phoned and faxed discharge orders and referral to [facility], ; fax [phone]. Pt's RN notified.
[2020-06-23 15:00] VITALS: BP_SYST 119; BP_SYST 125; BP_DIAS 73; BP_DIAS 76
--- NOTE | 2020-06-23 15:01 | NUR ---
Wound Care Wound care consult for BLE wounds. Pt has lymphedema with cellulitis to BLE. areas are reddened with open blisters. Cleansed area and covered with aquacel ag, ABD and kerlix, covered with Medigrip size G. Recommend to change every 2-3 days and PRN for drainage. Pt on steve bed, educated on PU prevention. No other wounds noted. Pt refused referral to [facility] due to transportation issues. Pt states her doctor and nurses come to her home. WC will continue to follow for possible changes.
--- NOTE | 2020-06-23 16:50 | NUR ---
Discharge instructions given to patient and education given over cellulitis and medications. Prescriptions given and called into the pharmacy. Pt informed that [facility] will be contacting her. Wound care on floor and dressed BLE. Pt verbalized understanding.
== END 2020-06-23 16:50 | disposition home health service (06) | DRG 603 ==
LOC: ER 16:07 → 5 NORTH 17:27
PROVIDERS: ADMIT Family Medicine; ATTEND Family Medicine
DX: L03.115 Cellulitis of right lower limb (principal); Z68.45 Body mass index [BMI] 70 or greater, adult; E03.9 Hypothyroidism, unspecified; L03.116 Cellulitis of left lower limb; B37.2 Candidiasis of skin and nail; E11.9 Type 2 diabetes mellitus without complications; E66.01 Morbid (severe) obesity due to excess calories; E78.00 Pure hypercholesterolemia, unspecified; I10 Essential (primary) hypertension; I87.2 Venous insufficiency (chronic) (peripheral); I89.0 Lymphedema, not elsewhere classified; J45.909 Unspecified asthma, uncomplicated; F32.9 Major depressive disorder, single episode, unspecified; F41.9 Anxiety disorder, unspecified; M19.90 Unspecified osteoarthritis, unspecified site; E78.5 Hyperlipidemia, unspecified; Z82.49 Family history of ischemic heart disease and other diseases of the circulatory system; Z86.718 Personal history of other venous thrombosis and embolism; Z87.891 Personal history of nicotine dependence; Z90.49 Acquired absence of other specified parts of digestive tract; Z98.51 Tubal ligation status; Z88.8 Allergy status to other drugs, medicaments and biological substances
CPT/HCPCS: 36415; 80053; 83605; 84145; 85025; 85610; 85730; 87040; 93923; 93970; 96365; 96366; 96368; 96375; 99285; J1650; J2270; J2543; J3370; J7030; J7040; 97530-GO; G0378